=== PATIENT | female | born 1975 | race Hispanic/Latino ===

== ENCOUNTER 2024-09-09 07:12 | Day surgery (SDC) | payer MEDICAID ==
[2024-09-06 12:55] LABS: IMMATURE GRANULOCYTE ABSOLUTE 0.01 K/uL (0-1); NUCLEATED RED BLOOD CELLS 0.0 % (0.0-0.19); PLATELET COUNT (AUTO) 208 K/uL (130-400); RED BLOOD CELL COUNT(AUTO) 4.67 MIL/uL (4.00-5.50); RED CELL DISTRIBUTION WIDTH 13.7 % (11.0-15.5); WHITE BLOOD COUNT (AUTO) 4.9 K/uL (4.8-10.8)
[2024-09-06 13:08] LABS: INR 0.95 (0.85-1.15)
[2024-09-06 13:26] VITALS: BP 175/90; PULSE 75; RESP 18; TEMP 98.2
[~2024-09-09] VITALS: Ht 152.4 cm; Wt 73.0 kg
[2024-09-09] VITALS (18 sets, daily range): BP systolic 123–166; BP diastolic 72–98; PULSE 73–90; RESP 14–20; TEMP 96.8–97.8
[~2024-09-09 07:12] MED LIST: LEVO75TA10 PO; VITAMIN D PO
--- NOTE | 2024-09-09 07:47 | NUR ---
ALLERGY MADE DR. WILDER AWARE OF PENICILLIN ALLERGY. DR. WILDER OKAYED TO PROCEED WITH ANCEF 2MG.
[2024-09-09] MEDS: LACTATED RINGERS 1000ML 1,000 ML IV ONE (08:14)
[2024-09-09] MEDS ORDERED: LIDOCAINE PF 100MG/5ML (2%) SYRINGE 5ML ONE (10:07)
[2024-09-09] MEDS: GABAPENTIN 300 MG CAPSULE ONE (10:25)
[2024-09-09] MEDS ORDERED: FAMOTIDINE 20MG VIAL IV ONE (10:52)
[2024-09-09] MEDS ORDERED: GLYCOPYRROLATE 0.2 MG/ML 5 ML VIAL ONE (12:53)
[2024-09-09] MEDS ORDERED: NEOSTIGMINE METHYLSULFATE 1MG/ML IV ONE (12:53)
[2024-09-09] MEDS ORDERED: HYDR-4060 PO (13:31)
--- NOTE | 2024-09-09 13:48 | OP ---
Operative Note: DATE OF PROCEDURE: 09/09/24 SURGEON: SAMM WILDER MD INTERMEDIATE PROJECT MANAGER: Jignesh Pulido ANESTHESIA: General ANESTHESIOLOGIST/ARTIST MODEL: Shavonne Desai CRNA PREOPERATIVE DIAGNOSIS: Left ankle infected nonunion POSTOPERATIVE DIAGNOSIS: Left ankle infected nonunion PROCEDURE: Left ankle hardware removal, excisional irrigation and debridement of muscle and bone, external fixation ESTIMATED BLOOD LOSS: 20 cc SPECIMENS: Culture swabs sent INDICATIONS: 49-year-old female approximately four months status post open reduction internal fixation of a left trimalleolar ankle fracture. Initial injury was open along the medial side after falling from a 2nd rung on a step stool. She was noted on most recent images in clinic to have an abnormal appearance of the bone in the distal tibia possibly consistent with osteomyelitis. 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 After discussion of the risks, benefits, and alternatives, the patient voluntarily agreed to undergo the aforementioned procedure. DESCRIPTION OF PROCEDURE: Patient was properly identified in the preoperative holding area. Surgical site marking was verified and surgery consent reviewed. The patient was then taken to the operating room and placed in supine position on the OR table. After induction of general anesthesia, preoperative antibiotics were held, all bony prominences were well-padded, and a well padded tourniquet was applied but not inflated at this time. The left lower extremity was then prepped and draped in usual sterile fashion. Surgical timeout was done verifying correct surgery, side, site, and location to be performed. We then began the procedure by exsanguinating the limb with elevation and inflating the tourniquet to 250 mm Hg. We then identified the ankle joint under fluoroscopy and used an 18 gauge needle to attempt to aspirate fluid from the tibiotalar articulation. This was a dry tap. We then identified the area of concern in the tibia under fluoroscopy and made a small stab incision using a 15 blade over this region. We placed a 4.5 mm drill bit through the cortex in this region and obtained a culture swab of the material that came out. Preoperative antibiotics were then given at this time. We then reopened the lateral incision using a clean 10 blade and came down sharply level of the plate. Goode elevator was used to elevate the soft tissue off of the plate. The screws in the plate were removed uneventfully as was the plate. There were no gross signs of infect ion in this region but obvious nonunion. We performed excisional debridement excising some of the periosteal tissue from the lateral wound. With live Cotton test under fluoroscopy, we noted the ankle joint remained unstable. We then reopened the medial incision for fixation. Using fluoroscopy to help localize the screw heads, we located these cannulated screws and then remove them without event. We then threaded the irrigated out with the medial and lateral wounds and obtained to external fixation pins applied through the parallel guide to the tibia proximal to the region of concern. These were connected using a parallel clamp. We placed a trans calcaneal pin distally. We verified under fluoroscopy that these were all appropriately placed within the bone and bicortical in the tibia. We then assembled a delta frame ex fix and tightened down the pinned the bar clamps on the calcaneal pin. We visualized under fluoroscopy well pulling traction to get the fibula out to length. We then tightened down the proximal bar to bar clamps to hold the reduction. Final x-rays were obtained under fluoroscopy. We then began closing in the medial and lateral wounds using 2-0 PDS in the subcutaneous tissues and 2-0 nylon in horizontal mattress fashion. Sterile soft dressing was applied using Xeroform, fluffs, and an Rory wrap around the external fixator. SAMM WILDER MD Sep 09, 2024 13:48
== END 2024-09-09 16:00 | disposition home or self-care (01) ==
LOC: DAH 07:12
PROVIDERS: ATTEND Student in an Organized Health Care Education/Training Program
DX: S82.452 Displaced comminuted fracture of shaft of left fibula (principal); T84.7XXA Infection and inflammatory reaction due to other internal orthopedic prosthetic devices, implants and grafts, initial encounter; M86.261 Subacute osteomyelitis, right tibia and fibula; M25.272 Flail joint, left ankle and foot; I10 Essential (primary) hypertension; E11.9 Type 2 diabetes mellitus without complications; E03.9 Hypothyroidism, unspecified; Z88.0 Allergy status to penicillin; Z85.41 Personal history of malignant neoplasm of cervix uteri; Z79.01 Long term (current) use of anticoagulants; Z79.899 Other long term (current) drug therapy; W19.XXXD Unspecified fall, subsequent encounter; Y82.8 Other medical devices associated with adverse incidents
CPT/HCPCS: 82040; 84703 ×2; 85025; 85610; 85730; 84134; 86140; 36415 ×2; 87641; 20692; 97161; 20680; 11043; 87070; 87076; 87205; 73600; 97116; 97530 ×2; C1713 ×2; A4649 ×2; J7120; J3490 ×4; J3010; J1100; J2270; J0665 ×3; J2003; J2704; J2405; J2710; J0690 ×2; A6223; C1776; A4930 ×2; A5120; A4215; A4223; A4213; A4222; A4221; A4663